=== PATIENT | female | born 1935 | race Caucasian/White ===

== ENCOUNTER 2017-10-28 14:11 | Inpatient (IN) | payer MEDICARE, OTHER ==
[~2017-10-28] VITALS: Ht 172.7 cm; Wt 52.6 kg
[2017-10-28 15:34] LABS: Basophils # (auto) 0 uL; Basophils % (auto) 0.2 % (0.0-2.0); Eosinophils # (auto) 0 uL; Eosinophils % (auto) 0.1 % (0.0-7.0); Hematocrit 43.1 % (36.0-46.0); Hemoglobin 14.8 g/dL (12.2-16.2); Lymphocytes # (auto) 0.8 uL; Lymphocytes % (auto) 6.4 % (10.0-50.0); Mean Corpuscular Hemoglobin 31.9 pg (28.0-32.0); Mean Corpuscular Hgb Conc. 34.3 g/dL (32.0-36.0); Mean Corpuscular Volume 92.9 fL (80.0-100.0); Monocytes # (auto) 0.8 uL; Monocytes % (auto) 6.7 % (0.0-12.0); Neutrophils # (auto) 10.3 uL; Neutrophils % (auto) 86.6 % (37.0-80.0); Platelet Count (auto) 187 10^3/uL (140-450); Red Blood Cells 4.63 10^6/uL (4.0-5.20); Red Cell Distribution Width 14.2 % (11.8-14.3); White Blood Cell 11.9 10^3/uL (4.4-10.8)
[2017-10-28 15:53] LABS: Albumin 3.8 g/dL (3.4-5.0); BUN/Creatinine Ratio 21.9; Bilirubin, Total 1.6 mg/dL (0.2-1.0); Calcium 8.6 mg/dL (8.5-10.1); Potassium 3.4 mmol/L (3.5-5.1); Total Protein 7.3 g/dL (6.4-8.2)
[2017-10-28] MEDS ORDERED: POTASSIUM EFFERVESENT TAB 25 MEQ PO ONE (17:00)
[2017-10-28] MEDS ORDERED: ASPirin-EC 81 mg tab PO ONE (18:00)
[2017-10-28] MEDS ORDERED: NITROGLYCERIN 0.4 MG SL TAB SL PRN (18:00)
[2017-10-28] MEDS ORDERED: DOCUSATE SOD 100 MG CAP PO PRN (18:00)
[2017-10-28] MEDS ORDERED: ONDANSETRON HCL 4 MG/2 ML VIAL IV PRN (18:00)
[2017-10-28] MEDS ORDERED: ACETAMINOPHEN 325 MG TAB PO PRN (18:00)
[2017-10-28] MEDS ORDERED: cefTRIAXone 1GM/10ml IVPUSH 10 ML IV ONE (18:00)
[2017-10-28] MEDS ORDERED: MORPHINE SULF INJ 2 MG/ML SYRINGE 1ML IV PRN ×2 (18:00)
[2017-10-28] MEDS: ENOXAPARIN SOD 40 MG/0.4 ML SYRINGE SC SCH (18:45)
[2017-10-28] MEDS: SODIUM CHLORIDE 0.9% 1,000 ML IV SCH (18:45)
[2017-10-28 18:58] LABS: Urine Amorphous Crystal FEW /hpf (None Seen); Urine Bacteria NONE SEEN /hpf (None Seen); Urine Blood Negative /uL (Negative); Urine WBC 1 /hpf (0 - 5)
[2017-10-28] MEDS: FAMOTIDINE 20 MG TAB PO SCH (21:23)
[2017-10-28] MEDS: ATORVASTATIN 20 MG TAB PO SCH (21:23)
[2017-10-28 22:00] VITALS: BP 128/68
[2017-10-29 05:00] VITALS: BP 137/74
[2017-10-29 06:29] LABS: Albumin 2.9 g/dL (3.4-5.0); BUN/Creatinine Ratio 16.7; Bilirubin, Total 1.7 mg/dL (0.2-1.0); Potassium 3.8 mmol/L (3.5-5.1); Total Protein 6.1 g/dL (6.4-8.2)
[2017-10-29 07:46] LABS: Basophils # (auto) 0.1 uL; Basophils % (auto) 0.7 % (0.0-2.0); Eosinophils # (auto) 0.2 uL; Eosinophils % (auto) 3.1 % (0.0-7.0); Hematocrit 40.1 % (36.0-46.0); Hemoglobin 13.5 g/dL (12.2-16.2); Lymphocytes # (auto) 1.1 uL; Lymphocytes % (auto) 14.6 % (10.0-50.0); Mean Corpuscular Hemoglobin 31.4 pg (28.0-32.0); Mean Corpuscular Hgb Conc. 33.6 g/dL (32.0-36.0); Mean Corpuscular Volume 93.3 fL (80.0-100.0); Monocytes # (auto) 0.9 uL; Monocytes % (auto) 12.1 % (0.0-12.0); Neutrophils # (auto) 5.2 uL; Neutrophils % (auto) 69.5 % (37.0-80.0); Nucleated Red Blood Cells % 0.1 %; Platelet Count (auto) 152 10^3/uL (140-450); White Blood Cell 7.5 10^3/uL (4.4-10.8)
[2017-10-29 08:00] VITALS: BP 140/73
[2017-10-29] MEDS: cefTRIAXone 1GM/10ml IVPUSH 10 ML IV SCH (08:25)
[2017-10-29] MEDS: SODIUM CHLORIDE 0.9% 1,000 ML IV SCH (09:40)
[2017-10-29] MEDS: MULTIPLE VITAMIN TAB PO SCH (10:00)
[2017-10-29] MEDS: ENOXAPARIN SOD 40 MG/0.4 ML SYRINGE SC SCH (10:00)
[2017-10-29] MEDS: FAMOTIDINE 20 MG TAB PO SCH ×2 (10:00→21:58)
[2017-10-29] MEDS: ASPirin-EC 81 mg tab PO SCH (10:00)
[2017-10-29 12:00] VITALS: BP 155/84
[2017-10-29 16:00] VITALS: BP 145/84
[2017-10-29 19:50] LABS: Folate (Folic Acid) 11.88 ng/mL (5.38-24)
[2017-10-29 21:24] VITALS: BP 152/83
[2017-10-29] MEDS: DONEPEZIL HYDROCHLORIDE 5 MG TAB PO SCH (21:58)
[2017-10-29] MEDS: ATORVASTATIN 20 MG TAB PO SCH (21:58)
[2017-10-30] VITALS (7 sets, daily range): BP systolic 134–157; BP diastolic 66–80
[2017-10-30] MEDS: SODIUM CHLORIDE 0.9% 1,000 ML IV SCH ×2 (04:46→20:13)
[2017-10-30 06:54] LABS: Basophils # (auto) 0.1 uL; Basophils % (auto) 0.9 % (0.0-2.0); Eosinophils # (auto) 0.4 uL; Eosinophils % (auto) 5.5 % (0.0-7.0); Hematocrit 38.3 % (36.0-46.0); Hemoglobin 12.8 g/dL (12.2-16.2); Lymphocytes # (auto) 1.4 uL; Lymphocytes % (auto) 19.3 % (10.0-50.0); Mean Corpuscular Hemoglobin 31.3 pg (28.0-32.0); Mean Corpuscular Hgb Conc. 33.5 g/dL (32.0-36.0); Mean Corpuscular Volume 93.2 fL (80.0-100.0); Monocytes # (auto) 0.9 uL; Monocytes % (auto) 12.1 % (0.0-12.0); Neutrophils # (auto) 4.5 uL; Neutrophils % (auto) 62.2 % (37.0-80.0); Nucleated Red Blood Cells % 0.2 %; Platelet Count (auto) 127 10^3/uL (140-450); Red Blood Cells 4.11 10^6/uL (4.0-5.20); Red Cell Distribution Width 14.1 % (11.8-14.3); White Blood Cell 7.2 10^3/uL (4.4-10.8)
[2017-10-30] MEDS: MULTIPLE VITAMIN TAB PO SCH (10:48)
[2017-10-30] MEDS: ENOXAPARIN SOD 40 MG/0.4 ML SYRINGE SC SCH (10:48)
[2017-10-30] MEDS: cefTRIAXone 1GM/10ml IVPUSH 10 ML IV SCH (10:48)
[2017-10-30] MEDS: ASPirin-EC 81 mg tab PO SCH (10:51)
[2017-10-30] MEDS: FAMOTIDINE 20 MG TAB PO SCH ×2 (10:51→21:49)
[2017-10-30] MEDS ORDERED: LORazepam 2MG/ML-1ML VIAL IV ONE (13:15)
[2017-10-30] MEDS: DONEPEZIL HYDROCHLORIDE 5 MG TAB PO SCH (21:48)
[2017-10-30] MEDS: HYDROcodone-ACET 5/325MG TAB PO PRN (21:49)
[2017-10-30] MEDS: ATORVASTATIN 20 MG TAB PO SCH (21:49)
[2017-10-31] MEDS: HYDROcodone-ACET 5/325MG TAB PO PRN (02:07)
[2017-10-31 05:17] VITALS: BP 139/68
[2017-10-31 08:00] VITALS: BP 139/68
[2017-10-31 09:00] VITALS: BP 142/76
[2017-10-31] MEDS: ENOXAPARIN SOD 40 MG/0.4 ML SYRINGE SC SCH (09:16)
[2017-10-31] MEDS: ASPirin-EC 81 mg tab PO SCH (09:16)
[2017-10-31] MEDS: cefTRIAXone 1GM/10ml IVPUSH 10 ML IV SCH (09:16)
[2017-10-31] MEDS: MULTIPLE VITAMIN TAB PO SCH (09:16)
[2017-10-31] MEDS: FAMOTIDINE 20 MG TAB PO SCH (09:16)
[2017-10-31 11:43] VITALS: BP 139/68
[2017-10-31] MEDS: SODIUM CHLORIDE 0.9% 1,000 ML IV SCH (12:39)
== END 2017-10-31 18:14 | disposition home or self-care (01) | DRG 640 ==
LOC: EDBD 14:11 → ER 14:11 → TELE 14:15 → TELE-WESTW 20:00 → TELE-CENTR 10-30 22:22
PROVIDERS: ADMIT Internal Medicine; ATTEND Family Medicine
PROC: 4A00X4Z Measurement of Central Nervous Electrical Activity, External Approach (ICD-10-PCS; principal; 2017-10-30)
DX: E86.0 Dehydration (principal); G92 Toxic encephalopathy; N39.0 Urinary tract infection, site not specified; E87.6 Hypokalemia; Z86.73 Personal history of transient ischemic attack (TIA), and cerebral infarction without residual deficits; K57.30 Diverticulosis of large intestine without perforation or abscess without bleeding; F03.90 Unspecified dementia, unspecified severity, without behavioral disturbance, psychotic disturbance, mood disturbance, and anxiety; M47.896 Other spondylosis, lumbar region; M85.80 Other specified disorders of bone density and structure, unspecified site; W18.39XA Other fall on same level, initial encounter; Y93.89 Activity, other specified; Y92.89 Other specified places as the place of occurrence of the external cause; Y99.8 Other external cause status; Z79.82 Long term (current) use of aspirin; I70.90 Unspecified atherosclerosis
CPT/HCPCS: 36415; 70450; 70551; 71045; 72192; 80053; 81001; 82533; 82607; 82746; 83605; 84443; 85025; 87040; 87086; 92610; 93005; 93306; 93886; 94761; 95819; 96372; 96374; 97163; J0696